=== PATIENT | female | born 1990 | race Caucasian/White ===

== ENCOUNTER 2017-12-20 14:26 | Emergency (ER) | payer OTHER ==
[~2017-12-20] VITALS: Ht 162.6 cm; Wt 65.9 kg
[2017-12-20 14:28] VITALS: Ht 162.6 cm; Wt 65.9 kg
[2017-12-20] MEDS ORDERED: MULTIPLE VITAMI1 TA1 PO (14:33)
[2017-12-20] MEDS ORDERED: PERCOCET 5-3251 TAB PO (14:33)
[2017-12-20 16:14] VITALS: BP 126/79
== END 2017-12-20 16:14 | disposition home or self-care (01) ==
LOC: D.ER 14:26
DX: G43.909 Migraine, unspecified, not intractable, without status migrainosus (principal); H53.8 Other visual disturbances

== ENCOUNTER → 2018-03-06 11:06 | Outpatient (CLI) | payer OTHER ==
[2017-12-20 14:28] VITALS: BMI 24.9
[~2018-03-06 11:06] MED LIST: MULTIPLE VITAMI1 TA1 PO; PERCOCET 5-3251 TAB PO
== END | disposition home or self-care (01) ==
LOC: D.US 11:06
DX: R10.9 Unspecified abdominal pain (principal)